=== PATIENT | female | born 1980 | race Caucasian/White ===

== ENCOUNTER → 2019-01-27 | Outpatient (CLI) | payer OTHER ==
--- NOTE | 2019-01-27 12:39 | WOMENS IMAGING REPORT ---
EXAM DESCRIPTION: BILAT DIAGNOSTIC MAMMO W/CAD; U/S BREAST UNILAT LIMITED COMPLETED DATE/TIME: 01/27/2019 9:51 am; 01/27/2019 10:23 am; 01/27/2019 10:24 am REASON FOR STUDY: N64.4 MASTODYNIA; RT BREAST N64.4; LT BREAST N64.4 N64.4 MASTODYNIA COMPARISON: None. EXAM PARAMETERS: Standard craniocaudal and mediolateral oblique views of each breast recorded using digital acquisition. Additional right true lateral view. Bilateral breast ultrasound to regions of clinical concern. Read with the assistance of CAD: .[facility] - R2 Day Guard Version 9.2 LIMITATIONS: None. FINDINGS: RIGHT BREAST MASSES: No suspicious masses. CALCIFICATIONS: No new or suspicious calcifications. ARCHITECTURAL DISTORTION: None. DEVELOPING DENSITY: None. ASYMMETRY: None noted. OTHER: No other significant findings. LEFT BREAST MASSES: Potential upper outer quadrant mass between 9 and 11 cm from the nipple. See ultrasound. CALCIFICATIONS: No new or suspicious calcifications. ARCHITECTURAL DISTORTION: None. DEVELOPING DENSITY: None. ASYMMETRY: None noted. OTHER: No other significant finding. Ultrasound right breast: This is the symptomatic breast. No dilated retroareolar ducts or masses. No the tissue distortion. Lateral breast unremarkable. Ultrasound left breast: Scanning of the upper outer quadrant reveals no mass. Retroareolar soft tis sues look symmetric compared to the right breast. No dilated ducts. IMPRESSION: No worrisome findings related to the breasts. Etiology for right nipple discharge and p ain unclear. This needs further clinical followup despite negative imaging. BREAST DENSITY: b. There are scattered areas of fibroglandular density. BIRAD: ASSESSMENT: 2 Benign findings. RECOMMENDATION: RECOMMENDED FOLLOW UP: Clinical followup of nipple discharge and pain. Otherwise, a ge-appropriate screening mammography on an annual basis. SPECIFIC INTERVENTION/IMAGING/CONSULTATION RECOMMENDED:No additional intervention/ imaging/consultati on needed at this time. COMMUNICATION:The negative/benign results were communicated to the patient. COMMENT: The patient has been notified of the results by letter per MQSA requirements. Additional no tification policies are in place for contacting patient with suspicious or incomplete findings. Quality ID #225: The [employer] recommends an annual screening mammogram for women aged 40 years or over. This facility utilizes a reminder system to ensure that all patients receive reminder letters, and/or direct phone calls for appointments. This includes reminders for routine scr eening mammograms, diagnostic mammograms, or other Breast Imaging Interventions when appropriate. Th is patient will be placed in the appropriate reminder system. TECHNICAL DOCUMENTATION: FINDING NUMBER: (1) ASSESSMENT: (1) JOB ID: [id number] [email or web address]- All Rights Reserved Reading location - IP/workstation name: [email or web address]
--- NOTE | 2019-01-27 12:39 | WOMENS IMAGING REPORT ---
EXAM DESCRIPTION: BILAT DIAGNOSTIC MAMMO W/CAD; U/S BREAST UNILAT LIMITED COMPLETED DATE/TIME: 01/27/2019 9:51 am; 01/27/2019 10:23 am; 01/27/2019 10:24 am REASON FOR STUDY: N64.4 MASTODYNIA; RT BREAST N64.4; LT BREAST N64.4 N64.4 MASTODYNIA COMPARISON: None. EXAM PARAMETERS: Standard craniocaudal and mediolateral oblique views of each breast recorded using digital acquisition. Additional right true lateral view. Bilateral breast ultrasound to regions of clinical concern. Read with the assistance of CAD: .[facility] - R2 [employer] Version 9.2 LIMITATIONS: None. FINDINGS: RIGHT BREAST MASSES: No suspicious masses. CALCIFICATIONS: No new or suspicious calcifications. ARCHITECTURAL DISTORTION: None. DEVELOPING DENSITY: None. ASYMMETRY: None noted. OTHER: No other significant findings. LEFT BREAST MASSES: Potential upper outer quadrant mass between 9 and 11 cm from the nipple. See ultrasound. CALCIFICATIONS: No new or suspicious calcifications. ARCHITECTURAL DISTORTION: None. DEVELOPING DENSITY: None. ASYMMETRY: None noted. OTHER: No other significant finding. Ultrasound right breast: This is the symptomatic breast. No dilated retroareolar ducts or masses. No the tissue distortion. Lateral breast unremarkable. Ultrasound left breast: Scanning of the upper outer quadrant reveals no mass. Retroareolar soft tis sues look symmetric compared to the right breast. No dilated ducts. IMPRESSION: No worrisome findings related to the breasts. Etiology for right nipple discharge and p ain unclear. This needs further clinical followup despite negative imaging. BREAST DENSITY: b. There are scattered areas of fibroglandular density. BIRAD: ASSESSMENT: 2 Benign findings. RECOMMENDATION: RECOMMENDED FOLLOW UP: Clinical followup of nipple discharge and pain. Otherwise, a ge-appropriate screening mammography on an annual basis. SPECIFIC INTERVENTION/IMAGING/CONSULTATION RECOMMENDED:No additional intervention/ imaging/consultati on needed at this time. COMMUNICATION:The negative/benign results were communicated to the patient. COMMENT: The patient has been notified of the results by letter per MQSA requirements. Additional no tification policies are in place for contacting patient with suspicious or incomplete findings. Quality ID #225: The [employer] recommends an annual screening mammogram for women aged 40 years or over. This facility utilizes a reminder system to ensure that all patients receive reminder letters, and/or direct phone calls for appointments. This includes reminders for routine scr eening mammograms, diagnostic mammograms, or other Breast Imaging Interventions when appropriate. Th is patient will be placed in the appropriate reminder system. TECHNICAL DOCUMENTATION: FINDING NUMBER: (1) ASSESSMENT: (1) JOB ID: [id number] [employer]- All Rights Reserved Reading location - IP/workstation name: [email or web address]
--- NOTE | 2019-01-27 12:39 | WOMENS IMAGING REPORT ---
EXAM DESCRIPTION: BILAT DIAGNOSTIC MAMMO W/CAD; U/S BREAST UNILAT LIMITED COMPLETED DATE/TIME: 01/27/2019 9:51 am; 01/27/2019 10:23 am; 01/27/2019 10:24 am REASON FOR STUDY: N64.4 MASTODYNIA; RT BREAST N64.4; LT BREAST N64.4 N64.4 MASTODYNIA COMPARISON: None. EXAM PARAMETERS: Standard craniocaudal and mediolateral oblique views of each breast recorded using digital acquisition. Additional right true lateral view. Bilateral breast ultrasound to regions of clinical concern. Read with the assistance of CAD: .[facility] - R2 [employer] Engineer Version 9.2 LIMITATIONS: None. FINDINGS: RIGHT BREAST MASSES: No suspicious masses. CALCIFICATIONS: No new or suspicious calcifications. ARCHITECTURAL DISTORTION: None. DEVELOPING DENSITY: None. ASYMMETRY: None noted. OTHER: No other significant findings. LEFT BREAST MASSES: Potential upper outer quadrant mass between 9 and 11 cm from the nipple. See ultrasound. CALCIFICATIONS: No new or suspicious calcifications. ARCHITECTURAL DISTORTION: None. DEVELOPING DENSITY: None. ASYMMETRY: None noted. OTHER: No other significant finding. Ultrasound right breast: This is the symptomatic breast. No dilated retroareolar ducts or masses. No the tissue distortion. Lateral breast unremarkable. Ultrasound left breast: Scanning of the upper outer quadrant reveals no mass. Retroareolar soft tis sues look symmetric compared to the right breast. No dilated ducts. IMPRESSION: No worrisome findings related to the breasts. Etiology for right nipple discharge and p ain unclear. This needs further clinical followup despite negative imaging. BREAST DENSITY: b. There are scattered areas of fibroglandular density. BIRAD: ASSESSMENT: 2 Benign findings. RECOMMENDATION: RECOMMENDED FOLLOW UP: Clinical followup of nipple discharge and pain. Otherwise, a ge-appropriate screening mammography on an annual basis. SPECIFIC INTERVENTION/IMAGING/CONSULTATION RECOMMENDED:No additional intervention/ imaging/consultati on needed at this time. COMMUNICATION:The negative/benign results were communicated to the patient. COMMENT: The patient has been notified of the results by letter per MQSA requirements. Additional no tification policies are in place for contacting patient with suspicious or incomplete findings. Quality ID #225: The [employer] recommends an annual screening mammogram for women aged 40 years or over. This facility utilizes a reminder system to ensure that all patients receive reminder letters, and/or direct phone calls for appointments. This includes reminders for routine scr eening mammograms, diagnostic mammograms, or other Breast Imaging Interventions when appropriate. Th is patient will be placed in the appropriate reminder system. TECHNICAL DOCUMENTATION: FINDING NUMBER: (1) ASSESSMENT: (1) JOB ID: [id number] [employer]- All Rights Reserved Reading location - IP/workstation name: [email or web address]
== END ==
LOC: WI 09:28
PROVIDERS: ATTEND Family Medicine
DX: N64.4 Mastodynia (principal)
CPT/HCPCS: 76642; 77066